=== PATIENT | female | born 1995 | race African-American/Black ===

== ENCOUNTER 2018-07-23 20:31 | Emergency (ER) | payer OTHER ==
[~2018-07-23] VITALS: Ht 160 cm; Wt 66.7 kg
[2018-07-23 20:53] LABS: URINE BILIRUBIN NEGATIVE (Negative); URINE BLOOD NEGATIVE (Negative); URINE CLARITY CLEAR; URINE COLOR YELLOW; URINE GLUCOSE-RANDOM* NEGATIVE (Negative); URINE KETONES NEGATIVE (Negative); URINE LEUKOCYTES-REFLEX NEGATIVE (Negative); URINE NITRITE-REFLEX NEGATIVE (Negative); URINE PROTEIN (DIPSTICK) NEGATIVE (Negative); URINE SPECIFIC GRAVITY 1.015 (1.005-1.035)
[2018-07-23 21:25] LABS: CALCIUM 9.1 mg/dL (8.5-10.1); POTASSIUM 3.2 mmol/L (3.5-5.1)
[2018-07-23 21:31] LABS: ABSOLUTE NEUTROPHILS 7.9 thou/uL (1.4-8.2); ALBUMIN 3.2 g/dL (3.4-5.0); BASOPHILS 0.4 % (0.0-2.0); EOSINOPHILS 0.9 % (0.0-3.0); HEMATOCRIT 29.4 % (37.0-47.0); HEMOGLOBIN 9.5 gm/dL (12.0-15.0); LYMPHOCYTES 14.3 % (24.0-44.0); MCH 23.7 pg (26.0-34.0); MCHC 32.4 g/dL (28.0-37.0); MCV 73.1 fL (80.0-100.0); MONOCYTES 8.6 % (1.0-8.0); PLATELET COUNT 247 thou/uL (150-400); POLYS 75.8 % (36.0-66.0); RBC 4.02 mil/uL (4.20-5.00); RDW 15.9 % (10.5-14.5); TOTAL BILIRUBIN 0.3 mg/dL (<0.1-1.0); TOTAL PROTEIN 8.9 g/dL (6.4-8.2); WBC 10.4 thou/uL (4.0-11.0)
[2018-07-23] MEDS ORDERED: TRAMADOL 50 MG50 MG PO (21:57)
[2018-07-23 23:54] VITALS: BP 96/53
== END 2018-07-23 23:55 | disposition home or self-care (01) ==
LOC: ER 20:31
PROVIDERS: Emergency Medicine
DX: E87.6 Hypokalemia (principal); D64.9 Anemia, unspecified; R51 Headache; R19.7 Diarrhea, unspecified

== ENCOUNTER 2020-04-26 10:03 | Emergency (ER) | payer OTHER ==
[~2020-04-26] VITALS: Ht 160 cm; Wt 68.0 kg
[~2020-04-26 10:03] MED LIST: TRAMADOL 50 MG50 MG PO
[2020-04-26 10:11] VITALS: BP 108/52
[2020-04-26 10:18] LABS: URINE BILIRUBIN NEGATIVE (Negative); URINE BLOOD NEGATIVE (Negative); URINE COLOR YELLOW; URINE GLUCOSE-RANDOM* NEGATIVE (Negative); URINE KETONES NEGATIVE (Negative); URINE NITRITE-REFLEX NEGATIVE (Negative); URINE PROTEIN (DIPSTICK) NEGATIVE (Negative); URINE UROBILINOGEN 0.2 E.U./dl (0.2-1.0)
[2020-04-26 10:20] LABS: URINE LEUKOCYTES-REFLEX 3+ (Negative)
[2020-04-26 10:21] LABS: URINE CLARITY SL HAZY
[2020-04-26 10:28] LABS: CASTS None Seen /LPF (None Seen); SQUAMOUS >10 Many /LPF (0-3)
[2020-04-26 10:29] LABS: BACTERIA-REFLEX 1-9 Few /HPF (None Seen); CRYSTALS None Seen /LPF (None Seen); URINE RBC 0-2 Rare /HPF (0-2); URINE WBC-REFLEX >25 Many /HPF (0-5); WBC CLUMPS Moderate (None Seen)
[2020-04-26] MEDS ORDERED: KEFLEX500 M1 PO (11:06)
== END 2020-04-26 11:23 | disposition home or self-care (01) ==
LOC: ER 10:03
PROVIDERS: Emergency Medicine
DX: A59.01 Trichomonal vulvovaginitis (principal); N39.0 Urinary tract infection, site not specified